=== PATIENT | female | born 1995 | race Two or more races ===

== ENCOUNTER 2017-04-09 06:47 | Emergency (ER) | payer OTHER ==
[~2017-04-09] VITALS: Ht 170.2 cm; Wt 65.9 kg
[~2017-04-09 06:47] MED LIST: CHILDREN'S100 MG/51 PO; KEFLEX500 MG PO; MEDIFIN EX100 MG/5 M PO; MEDROL DOSEPAK4 MG PO; MOBIC7.5 MG PO; ROBITUSSIN NIG118 ML PO; TYLENOL WITH C1 EACH PO
[2017-04-09 07:46] LABS: HEMATOCRIT 37.1 % (36.0-46.0); MCH 31.6 PG (29.0-34.0); MCHC 35.6 G/DL (30.0-36.0); MCV 88.8 FL (83-99); MEAN PLAT.VOLUME 10.3 uM^3 (9.5-12.4); PLATELET COUNT 230 K/uL (156-360); RBC DIS.WIDTH-SD 38.9 % (39-53); RED BLOOD COUNT 4.18 M/uL (3.80-5.20); WHITE BLOOD COUNT 8.5 K/uL (4.1-10.2)
[2017-04-09 07:54] LABS: CHLORIDE 104 mEq/L (99-109); POTASSIUM 3.1 mEq/L (3.7-5.4); SODIUM 134 mEq/L (136-147)
[2017-04-09 07:56] LABS: GLUCOSE 124 mg/dL (70-99)
[2017-04-09 07:57] LABS: ANION GAP 8 MEQ/L (2-14)
[2017-04-09 07:58] LABS: TOTAL BILIRUBIN 0.4 mg/dL (0.0-1.0)
[2017-04-09 07:59] LABS: ALKALINE PHOSPHATASE 46 IU/L (3-129)
[2017-04-09 08:00] LABS: GFR ESTIMATE (CALCULATED) > 59 mL/min/
[2017-04-09 08:01] LABS: UREA NITROGEN (BUN) 9 mg/dL (9-23)
[2017-04-09] MEDS ORDERED: ZOFRAN ODT4 MG PO (08:01)
[2017-04-09 08:32] LABS: QUANTITATIVE HCG 37581.7 MIU/ML
[2017-04-09 10:06] LABS: ADD MIUA? YES; BILIRUBIN NEGATIVE; BLOOD NEGATIVE; COLOR YELLOW ((YELLOW)); GLUCOSE (STRIP) 50; KETONES 20; LEUKOCYTES NEGATIVE; NITRITE NEGATIVE; PROTEIN (STRIP) NEGATIVE; SPECIFIC GRAVITY 1.017 (1.000-1.030)
[2017-04-09 10:15] LABS: BACTERIA RARE /HPF; EPITHELIAL CELLS 1+ /HPF; MUCUS TRACE /LPF; RED BLOOD CELLS 0-5 /HPF (0-5); WHITE BLOOD CELLS 0-5 /HPF (0-5)
[2017-04-09 10:40] VITALS: BP 130/68
== END 2017-04-09 10:40 | disposition home or self-care (01) ==
LOC: EME 06:47
PROVIDERS: Nurse Practitioner Family
DX: O26.891 Other specified pregnancy related conditions, first trimester (principal); R10.9 Unspecified abdominal pain; O21.9 Vomiting of pregnancy, unspecified; O99.281 Endocrine, nutritional and metabolic diseases complicating pregnancy, first trimester; E86.0 Dehydration; Z3A.13 13 weeks gestation of pregnancy
CPT/HCPCS: 76801; 80053; 81003; 84702; 85027; 99281; 99284; J2405; J7030

== ENCOUNTER 2017-05-21 12:56 | Emergency (ER) | payer OTHER ==
[~2017-05-21] VITALS: Ht 170.2 cm; Wt 63.4 kg
[~2017-05-21 12:56] MED LIST changes: +ZOFRAN ODT4 MG PO
[2017-05-21 13:04] VITALS: BP 137/68
[2017-05-21 13:39] LABS: HEMATOCRIT 35.8 % (36.0-46.0); HEMOGLOBIN 12.4 G/DL (11.9-15.5); MCH 30.6 PG (29.0-34.0); MCHC 34.6 G/DL (30.0-36.0); MCV 88.4 FL (83-99); PLATELET COUNT 266 K/uL (156-360); RBC DIS.WIDTH-CV 12.8 % (11.8-14.6); RBC DIS.WIDTH-SD 41.6 % (39-53); RED BLOOD COUNT 4.05 M/uL (3.80-5.20); WHITE BLOOD COUNT 9.4 K/uL (4.1-10.2)
[2017-05-21 13:48] LABS: ALBUMIN 4.2 g/dL (3.2-4.8); CHLORIDE 106 mEq/L (99-109); POTASSIUM 3.7 mEq/L (3.7-5.4); SODIUM 136 mEq/L (136-147)
[2017-05-21 13:51] LABS: GLUCOSE 97 mg/dL (70-99); TOTAL PROTEIN 7.5 g/dL (6.4-8.3)
[2017-05-21 13:53] LABS: TOTAL BILIRUBIN 0.5 mg/dL (0.0-1.0)
[2017-05-21 13:54] LABS: ALKALINE PHOSPHATASE 52 IU/L (3-129); CREATININE 0.7 mg/dL (0.6-1.3); GFR ESTIMATE (CALCULATED) > 59 mL/min/
[2017-05-21 13:55] LABS: UREA NITROGEN (BUN) 9 mg/dL (9-23)
[2017-05-21 13:56] LABS: AST (GOT) 31 IU/L (2-34)
[2017-05-21 13:57] LABS: ALT (GPT) 27 IU/L (3-49)
[2017-05-21 14:25] LABS: QUANTITATIVE HCG 19907.6 MIU/ML
== END 2017-05-21 14:24 | disposition left against medical advice (07) ==
LOC: EME 12:56
DX: R10.9 Unspecified abdominal pain (principal); Z53.21 Procedure and treatment not carried out due to patient leaving prior to being seen by health care provider
CPT/HCPCS: 80053; 81003; 84702; 85027; 99281

== ENCOUNTER 2017-07-30 07:58 | Emergency (ER) | payer OTHER ==
[~2017-07-30] VITALS: Ht 170.2 cm; Wt 69.2 kg
[2017-07-30 08:07] VITALS: BP 129/75
== END 2017-07-30 09:44 | disposition left against medical advice (07) ==
LOC: EME 07:58
DX: R05 Cough (principal); J34.89 Other specified disorders of nose and nasal sinuses; G43.909 Migraine, unspecified, not intractable, without status migrainosus; Z53.21 Procedure and treatment not carried out due to patient leaving prior to being seen by health care provider

== ENCOUNTER 2017-09-15 14:15 | Outpatient (CLI) | payer OTHER ==
[~2017-09-15] VITALS: Ht 170.2 cm; Wt 70.9 kg
[2017-09-15] MEDS ORDERED: EXPECTA PRENAT1 EACH PO (14:57)
[2017-09-15 15:03] VITALS: BP 135/72
[2017-09-15 15:52] VITALS: BP 123/59
[2017-09-15 16:47] LABS: APPEARANCE CLEAR ((CLEAR)); BILIRUBIN NEGATIVE; BLOOD NEGATIVE; COLOR YELLOW ((YELLOW)); GLUCOSE (STRIP) NEGATIVE; KETONES 20; LEUKOCYTES NEGATIVE; NITRITE NEGATIVE; PROTEIN (STRIP) NEGATIVE; SPECIFIC GRAVITY 1.018 (1.000-1.030); UCUL ADDED? NO; UROBILINOGEN 0.2 MG/DL (0.2-1.0)
== END 2017-09-15 17:15 | disposition home or self-care (01) ==
LOC: LDRP-OP 14:15 → 2WEST 14:16 → LDRP-OP 11-19 14:41
PROVIDERS: Midwife
DX: O21.2 Late vomiting of pregnancy (principal); O99.343 Other mental disorders complicating pregnancy, third trimester; F41.8 Other specified anxiety disorders; Z3A.35 35 weeks gestation of pregnancy
CPT/HCPCS: 59025; 81003; G0378

== ENCOUNTER 2017-10-25 19:20 | Inpatient (IN) | payer OTHER ==
[~2017-10-25 19:20] MED LIST changes: +EXPECTA PRENAT1 EACH PO
[2017-10-25 19:55] VITALS: BP 131/76
[2017-10-25 20:36] LABS: BASOPHIL (%) 0.3 % (0-1); EOSINOPHIL (%) 0.2 % (0-5); HEMATOCRIT 40.8 % (36.0-46.0); HEMOGLOBIN 13.3 G/DL (11.9-15.5); IMMATURE GRANULOCYTE (%) 0.2 % (0.0-0.7); LYMPHOCYTE (%) 18.1 % (15-42); LYMPHOCYTE COUNT 1.1 K/uL (1.0-2.8); MCH 28.9 PG (29.0-34.0); MCHC 32.6 G/DL (30.0-36.0); MCV 88.5 FL (83-99); MONOCYTE (%) 9.7 % (3-12); MONOCYTE COUNT 0.6 K/uL (0-0.8); NEUTROPHIL (%) 71.5 % (45-76); NEUTROPHIL COUNT 4.5 K/uL (1.8-6.4); PLATELET COUNT 156 K/uL (156-360); RBC DIS.WIDTH-CV 13.2 % (11.8-14.6); RBC DIS.WIDTH-SD 42.6 % (39-53); RED BLOOD COUNT 4.61 M/uL (3.80-5.20); WHITE BLOOD COUNT 6.3 K/uL (4.1-10.2)
[2017-10-25 20:55] LABS: AMPHETAMINE NEGATIVE (500 ng/mL); BARBITURATES NEGATIVE (200 ng/mL); BENZODIAZEPINES NEGATIVE (150 ng/mL); BUPRENORPHINE NEGATIVE (10 ng/mL); COCAINE NEGATIVE (150 ng/mL); METHADONE NEGATIVE (200 ng/mL); METHAMPHETAMINE NEGATIVE (500 ng/mL); OPIATES (MORPHINE) NEGATIVE (100 ng/mL); OXYCODONE NEGATIVE (100 ng/mL); PHENCYCLIDINE NEGATIVE (25 ng/mL); PROPOXYPHENE NEGATIVE (300 ng/mL); THC CANNABINOIDS NEGATIVE (50 ng/mL); TRICYCLIC ANTIDEPRESSANTS NEGATIVE (300 ng/mL)
[2017-10-25 20:59] VITALS: BP 129/62
[2017-10-25 23:01] VITALS: BP 117/57
[2017-10-25 23:59] VITALS: BP 137/63
[2017-10-26] VITALS (17 sets, daily range): BP systolic 115–163; BP diastolic 55–92
[2017-10-27 07:22] VITALS: BP 113/77
== END 2017-10-27 15:00 | disposition home or self-care (01) | DRG 775 ==
LOC: LDRP-OP 19:20 → 2WEST 19:22 → LDRP-OP 11-19 17:38
PROVIDERS: Midwife
PROC: 00HU33Z Insertion of Infusion Device into Spinal Canal, Percutaneous Approach (ICD-10-PCS; principal; 2017-10-26)
PROC: 10E0XZZ Delivery of Products of Conception, External Approach (ICD-10-PCS; principal; 2017-10-26)
PROC: 3E0R3BZ Introduction of Anesthetic Agent into Spinal Canal, Percutaneous Approach (ICD-10-PCS; principal; 2017-10-26)
DX: O80 Encounter for full-term uncomplicated delivery (principal); Z37.0 Single live birth; Z3A.40 40 weeks gestation of pregnancy
CPT/HCPCS: 85025; C1755; G0378; J3010; J7120